=== PATIENT | female | born 1950 | race Caucasian/White ===

== ENCOUNTER → 2018-08-21 | Outpatient (CLI) | payer OTHER ==
[~2018-08-21] MED LIST: ASPI325 PO; ASPI81EC PO; CEPH500 PO; CLOP75 PO; Cinnamon500 MG PO; FISH1000 PO; GLIP5 PO; Ginkgo Biloba40 M1 PO; Hair, Skin & N1 EACH; KETO10 PO; LISI20 PO; LOSA50; METO25ER PO; METO50 PO; METO50ER PO; NEFA50 PO; NITR.4SL SL; NITR.4TPA; NITR.6SL; OXYC5; PRAV20 PO; Percocet 5-3251 EACH PO; Prilosec Otc20 MG PO; UBID100 PO; Zofran Odt8 MG SL
[2018-08-21 17:36] LABS: BASOPHILS ABSOLUTE AUTO 0.03 K/mm3 (0.00-0.23); BASOPHILS PERCENT AUTO 0 % (0-2); EOSINOPHILS ABSOLUTE AUTO 0.06 K/mm3 (0.00-0.68); EOSINOPHILS PERCENT AUTO 1 % (0-6); Hematocrit 42.5 % (33.0-51.0); Hemoglobin 14.5 g/dL (11.5-16.0); IMMATURE GRAN ABSOLUTE AUTO 0.02 K/mm3 (0.00-0.10); IMMATURE GRAN PERCENT AUTO 0 % (0-1); LYMPHOCYTES PERCENT AUTO 33 % (21-46); MONOCYTES ABSOLUTE AUTO 0.37 K/mm3 (0.16-1.47); MONOCYTES PERCENT AUTO 5 % (4-13); Mean Corpuscular HGB 32.1 pg (26.0-34.0); Mean Corpuscular HGB Conc 34.1 g/dL (31.5-36.5); Mean Corpuscular Volume 94 fL (80-100); Mean Platelet Volume 11.6 fL (9.1-12.4); NEUTROPHILS ABSOLUTE AUTO 4.38 K/mm3 (1.96-9.15); NEUTROPHILS PERCENT AUTO 60 % (41-73); Platelet Count 177 K/mm3 (150-400); RDW Coefficient Variation 12.1 % (11.7-14.2); RDW Standard Deviation 42.1 fL (35.1-46.3); Red Blood Cell Count 4.52 M/mm3 (3.80-5.20); White Blood Cell Count 7.26 K/mm3 (4.00-11.30)
[2018-08-21 18:12] LABS: Anion Gap 9 mmol/L (6-16); Blood Urea Nitrogen 14 mg/dL (8-24); Bun/Creatinine Ratio 19.5 (12.0-20.0); CO2, Blood 24 mmol/L (21-32); Calcium, Blood 9.5 mg/dL (8.5-10.1); Chloride, Blood 105 mmol/L (98-108); Creatinine, Blood 0.72 mg/dL (0.40-1.00); Glomerular Filtration Rate >60 (60-); Glucose, Blood 144 mg/dL (70-99); Potassium, Blood 3.6 mmol/L (3.5-5.5); Sodium, Blood 138 mmol/L (136-145)
== END | disposition home or self-care (01) ==
LOC: LAB 17:11 → LAB SHORT 17:11
PROVIDERS: Physician Assistant
DX: N39.0 Urinary tract infection, site not specified (principal); M54.9 Dorsalgia, unspecified
CPT/HCPCS: 80048; 85025; 87086

== ENCOUNTER → 2018-09-18 | Outpatient (CLI) | payer OTHER ==
[~2018-09-18] MED LIST changes: +ALPRAZOLAM0.5 MG PO; +Co Q-10300 MG PO; +Isosorbide Mono30 MG PO; +LIDO700A20 TOP; +LOSA50 PO; +Roxicodone5 MG PO
== END | disposition home or self-care (01) ==
LOC: LAB 17:54 → LAB SHORT 17:54
DX: R10.9 Unspecified abdominal pain (principal)
CPT/HCPCS: 87086

== ENCOUNTER 2018-11-05 16:07 | Emergency (ER) | payer OTHER ==
[~2018-11-05] VITALS: Ht 167.6 cm; Wt 59.9 kg
[~2018-11-05 16:07] MED LIST changes: -ALPRAZOLAM0.5 MG PO; -Co Q-10300 MG PO; -Isosorbide Mono30 MG PO; -LIDO700A20 TOP; -LOSA50 PO; -Roxicodone5 MG PO
[2018-11-05] MEDS ORDERED: LIDO700A20 TOP (17:55)
[2018-11-05] MEDS ORDERED: Roxicodone5 MG PO (17:55)
[2018-11-10] MEDS ORDERED: LOSA50 PO (13:50)
[2018-11-10] MEDS ORDERED: ALPRAZOLAM0.5 MG PO (13:51)
[2018-11-10] MEDS ORDERED: Isosorbide Mono30 MG PO (13:54)
== END 2018-11-05 18:11 | disposition home or self-care (01) ==
LOC: ER 16:07
DX: S20.211A Contusion of right front wall of thorax, initial encounter (principal); W19.XXXA Unspecified fall, initial encounter; Z88.0 Allergy status to penicillin; Z88.2 Allergy status to sulfonamides; Z88.5 Allergy status to narcotic agent; Z79.899 Other long term (current) drug therapy; Z79.82 Long term (current) use of aspirin; F17.210 Nicotine dependence, cigarettes, uncomplicated
CPT/HCPCS: 71100; 99284-25

== ENCOUNTER 2018-11-13 08:43 | Day surgery (SDC) | payer OTHER ==
[~2018-11-13] VITALS: Ht 154.9 cm; Wt 59.0 kg
[~2018-11-13 08:43] MED LIST changes: +ALPRAZOLAM0.5 MG PO; +Isosorbide Mono30 MG PO; +LIDO700A20 TOP; +LOSA50 PO; +Roxicodone5 MG PO
[2018-11-13] MEDS ORDERED: Prilosec Otc20 MG PO (09:23)
[2018-11-13] MEDS ORDERED: Co Q-10300 MG PO (09:24)
--- NOTE | 2018-11-13 11:40 | NUR ---
PT TO RECOVERY POST PROCEDURE. PT ALERT AND ORIENTED, ANSWERING QUESTIONS. PT DENIES CHEST PAIN, SOB OR NAUSEA. MONITOR SB 50'S, B/P 171/79, AFEBRILE, SPO2 98% RA. L GROIN SITE NO SWELLING/HEMATOMA, ALYSSA AND TEGADERM DRSG IN PLACE C,D,I; BLE PULSES UNCHANGED FROM PRE-PROCEDURE. PT'S SPOUSE AT BEDSIDE.
--- NOTE | 2018-11-13 15:24 | NUR ---
PT AMB AROUND UNIT WITHOUT PROBELM, NO CHEST PAIN; L GROIN SITE UNCHANGED AFTER ACTIVITY. PT'S B/P 197/93 AFTER ACTIVITY; DR GUERRERO NOTIFIED OF ELEVATED B/P; ORDERS RECEIVED FOR HYDRALAZINE 10MG IV.
--- NOTE | 2018-11-13 15:41 | NUR ---
PT'S B/P 151/70 AFTER IV HYDRALAZINE; L GROIN SITE REMAINS UNCHANGED. PT RECEIVED DISCHARGE INSTRUCTIONS, MEDICATION LIST AND SUPPLEMENTAL HANDOUTS FOR GROIN SITE CARE; PT AND SPOUSE VERBALIZE GOOD UNDERSTANDING. IV REMOVED, CANNULA INTACT. PT LEFT FACILITY VIA W/C WITH ; CONDITION STABLE.
== END 2018-11-13 15:30 | disposition home or self-care (01) ==
LOC: MHTC 08:43
DX: I25.10 Atherosclerotic heart disease of native coronary artery without angina pectoris (principal); I10 Essential (primary) hypertension; E11.9 Type 2 diabetes mellitus without complications; F32.9 Major depressive disorder, single episode, unspecified; E78.5 Hyperlipidemia, unspecified; F17.210 Nicotine dependence, cigarettes, uncomplicated; Z88.2 Allergy status to sulfonamides; Z88.5 Allergy status to narcotic agent; Z88.0 Allergy status to penicillin; Z79.899 Other long term (current) drug therapy; Z79.82 Long term (current) use of aspirin; Z79.02 Long term (current) use of antithrombotics/antiplatelets; Z79.84 Long term (current) use of oral hypoglycemic drugs; Z95.1 Presence of aortocoronary bypass graft
CPT/HCPCS: 82947; 93459; 99152; 99153; C1769; J0360; J1644; J2250; J3010; J7030; Q9967

== ENCOUNTER 2019-03-05 18:42 | Emergency (ER) | payer OTHER ==
[~2019-03-05] VITALS: Ht 154.9 cm; Wt 56.7 kg
[~2019-03-05 18:42] MED LIST changes: +Co Q-10300 MG PO; -Hair, Skin & N1 EACH; +Hair, Skin & N1 EACH PO
[2019-03-05 19:17] LABS: BASOPHILS ABSOLUTE AUTO 0.01 K/mm3 (0.00-0.23); BASOPHILS PERCENT AUTO 0 % (0-2); EOSINOPHILS PERCENT AUTO 0 % (0-6); Hematocrit 46.6 % (33.0-51.0); Hemoglobin 15.8 g/dL (11.5-16.0); IMMATURE GRAN ABSOLUTE AUTO 0.04 K/mm3 (0.00-0.10); IMMATURE GRAN PERCENT AUTO 1 % (0-1); LYMPHOCYTES ABSOLUTE AUTO 0.55 K/mm3 (0.84-5.20); LYMPHOCYTES PERCENT AUTO 7 % (21-46); MONOCYTES ABSOLUTE AUTO 0.04 K/mm3 (0.16-1.47); MONOCYTES PERCENT AUTO 1 % (4-13); Mean Corpuscular HGB 31.4 pg (26.0-34.0); Mean Corpuscular HGB Conc 33.9 g/dL (31.5-36.5); Mean Corpuscular Volume 93 fL (80-100); Mean Platelet Volume 11.1 fL (9.1-12.4); NEUTROPHILS PERCENT AUTO 92 % (41-73); Platelet Count 169 K/mm3 (150-400); RDW Coefficient Variation 12.4 % (11.7-14.2); RDW Standard Deviation 42.4 fL (35.1-46.3); Red Blood Cell Count 5.03 M/mm3 (3.80-5.20); White Blood Cell Count 8.44 K/mm3 (4.00-11.30)
[2019-03-05 19:38] LABS: Alanine Aminotransfer (ALT/SGP 23 U/L (12-78); Albumin, Blood 4.3 g/dL (3.4-5.0); Albumin/Globulin Ratio 1.2 (0.8-1.8); Alk Phos 94 U/L (50-136); Anion Gap 10 mmol/L (6-16); Aspartate Aminotrans (AST/SGOT 16 U/L (12-37); Bilirubin, Total 0.6 mg/dL (0.1-1.0); Blood Urea Nitrogen 12 mg/dL (8-24); Bun/Creatinine Ratio 16.5 (12.0-20.0); CO2, Blood 24 mmol/L (21-32); Calcium, Blood 10.3 mg/dL (8.5-10.1); Chloride, Blood 104 mmol/L (98-108); Creatinine, Blood 0.73 mg/dL (0.40-1.00); Globulin, Blood 3.6 g/dL (2.2-4.0); Glomerular Filtration Rate >60 (60-); Glucose, Blood 308 mg/dL (70-99); Potassium, Blood 3.6 mmol/L (3.5-5.5); Sodium, Blood 138 mmol/L (136-145); Total Protein, Blood 7.9 g/dL (6.4-8.2)
[2019-03-05 20:12] LABS: Source, Urine Voided
[2019-03-05 20:27] LABS: Bilirubin, Urine Neg (Neg); Blood, Urine 5+ (Neg); Glucose Qualitative, Urine 4+ (Neg); Ketones, Urine 1+ (Neg); Leukocyte Esterase, Urine 3+ (Neg); Nitrite, Urine Neg (Neg); Protein, Urine 4+ (Neg); Urobilinogen, Urine NORM (Normal)
[2019-03-05 20:28] LABS: Appearance, Urine Bloody (Clear); Color, Urine Red (P-Yellow)
[2019-03-05 20:29] LABS: Bacteria Mod /hpf; Red Blood Cells, Urine TNTC /hpf (0-2); Squamous Epithelial Cells Rare /hpf (Few)
[2019-03-05] MEDS ORDERED: Cipro500 MG PO (20:42)
== END 2019-03-05 20:57 | disposition home or self-care (01) ==
LOC: ER 18:42
PROVIDERS: Emergency Medicine; Physician Assistant
DX: R73.9 Hyperglycemia, unspecified (principal); N39.0 Urinary tract infection, site not specified; Z88.0 Allergy status to penicillin; Z88.2 Allergy status to sulfonamides; Z88.5 Allergy status to narcotic agent; Z79.899 Other long term (current) drug therapy; Z79.82 Long term (current) use of aspirin; G47.30 Sleep apnea, unspecified; F17.200 Nicotine dependence, unspecified, uncomplicated
CPT/HCPCS: 36415; 80053; 81001; 82947; 84484; 85025; 99283; J7030

== ENCOUNTER → 2019-08-01 | Outpatient (CLI) | payer OTHER ==
[~2019-08-01] MED LIST changes: +Cipro500 MG PO
[2019-08-01 20:21] LABS: Anion Gap 5 mmol/L (6-16); Blood Urea Nitrogen 11 mg/dL (8-24); Bun/Creatinine Ratio 16.5 (12.0-20.0); CO2, Blood 27 mmol/L (21-32); Calcium, Blood 9.6 mg/dL (8.5-10.1); Chloride, Blood 106 mmol/L (98-108); Creatinine, Blood 0.67 mg/dL (0.40-1.00); Glomerular Filtration Rate >60 (60-); Glucose, Blood 191 mg/dL (70-99); Potassium, Blood 4.1 mmol/L (3.5-5.5); Sodium, Blood 138 mmol/L (136-145)
== END | disposition home or self-care (01) ==
LOC: LAB SHORT 17:26 → LAB 17:26
PROVIDERS: Hospitalist
DX: R10.32 Left lower quadrant pain (principal)
CPT/HCPCS: 80048

== ENCOUNTER → 2020-04-15 | Outpatient (CLI) | payer OTHER | LOC: PLD 11:24 → LAB SHORT 11:24 | DX: D22.61 Melanocytic nevi of right upper limb, including shoulder (principal) | CPT/HCPCS: 88305 ==

== ENCOUNTER → 2020-04-28 | Outpatient (CLI) | payer OTHER | END | disposition home or self-care (01) | LOC: LAB 11:13 → LAB SHORT 11:13 | DX: D03.61 Melanoma in situ of right upper limb, including shoulder (principal) | CPT/HCPCS: 88305 ==

== ENCOUNTER → 2020-06-14 | Outpatient (CLI) | payer OTHER | END | disposition home or self-care (01) | LOC: LAB SHORT 14:30 → PLD 14:30 | DX: N30.00 Acute cystitis without hematuria (principal) | CPT/HCPCS: 87077; 87086; 87186 ==

== ENCOUNTER → 2020-08-19 | Outpatient (CLI) | payer OTHER | END | disposition home or self-care (01) | LOC: LAB SHORT 15:57 → LAB 15:57 | DX: D22.5 Melanocytic nevi of trunk (principal) | CPT/HCPCS: 88305 ==

== ENCOUNTER → 2020-11-17 | Outpatient (CLI) | payer OTHER | END | disposition home or self-care (01) | LOC: LAB 10:57 → LAB SHORT 10:57 | DX: D48.5 Neoplasm of uncertain behavior of skin (principal) | CPT/HCPCS: 88305 ==

== ENCOUNTER → 2020-12-12 | Outpatient (CLI) | payer OTHER | END | disposition home or self-care (01) | LOC: LAB 12:30 → LAB SHORT 12:30 | DX: N30.01 Acute cystitis with hematuria (principal); R30.0 Dysuria | CPT/HCPCS: 87077; 87086; 87186 ==

== ENCOUNTER → 2021-02-26 | Outpatient (CLI) | payer OTHER | END | disposition home or self-care (01) | LOC: LAB SHORT 14:30 | DX: R30.0 Dysuria (principal) | CPT/HCPCS: 87086 ==

== ENCOUNTER → 2021-09-14 | Outpatient (CLI) | payer OTHER ==
[2021-09-14 19:32] LABS: Albumin, Blood 3.8 g/dL (3.4-5.0); Albumin/Globulin Ratio 1.4 (0.8-1.8); Alk Phos 104 U/L (50-136); Anion Gap 7 mmol/L (6-16); Aspartate Aminotrans (AST/SGOT 18 U/L (12-37); Bilirubin, Total 0.9 mg/dL (0.1-1.0); Blood Urea Nitrogen 15 mg/dL (8-24); CHOL/HDL RATIO 2.1; CO2, Blood 25 mmol/L (21-32); Calcium, Blood 9.8 mg/dL (8.5-10.1); Chloride, Blood 107 mmol/L (98-108); Cholesterol 161 mg/dL (50-200); Globulin, Blood 2.8 g/dL (2.2-4.0); Glucose, Blood 187 mg/dL (70-99); HDL Cholesterol 75 mg/dL (>39); LDL/HDL RATIO 0.9; Low Density Lipoprotein Chol 67 mg/dL (0-110); Potassium, Blood 4.1 mmol/L (3.5-5.5); Sodium, Blood 139 mmol/L (136-145); Total Protein, Blood 6.6 g/dL (6.4-8.2); Triglycerides 97 mg/dL (30-160); Very Low Density Lipoprot Chol 19 mg/dL (6-32)
[2021-09-14 19:33] LABS: Alanine Aminotransfer (ALT/SGP 22 U/L (12-78); Creatinine, Blood 0.71 mg/dL (0.40-1.00); Glomerular Filtration Rate 92 (60-)
== END | disposition home or self-care (01) ==
LOC: LAB SHORT 17:31 → LAB 17:31
PROVIDERS: Hospitalist
DX: E11.42 Type 2 diabetes mellitus with diabetic polyneuropathy (principal); I10 Essential (primary) hypertension; E78.5 Hyperlipidemia, unspecified
CPT/HCPCS: 80053; 80061; 82043; 83036

== ENCOUNTER → 2022-06-08 | Outpatient (CLI) | payer OTHER | LOC: LAB 16:45 → LAB SHORT 16:45 | DX: R07.9 Chest pain, unspecified (principal) | CPT/HCPCS: 84484 ==

== ENCOUNTER → 2022-12-07 | Outpatient (CLI) | payer OTHER | END | disposition home or self-care (01) | LOC: LAB 10:45 → LAB SHORT 10:45 | DX: R30.0 Dysuria (principal) | CPT/HCPCS: 87086 ==

== ENCOUNTER → 2023-10-11 | Outpatient (CLI) | payer OTHER ==
[2023-10-11 21:18] LABS: Microalb/Creat Ratio UR, Rand 10.389 mg/g (0.000-30.000); Microalbumin, Random Urine 37.4 mg/L (0.000-20.000)
== END | disposition home or self-care (01) ==
LOC: LAB 18:16 → LAB SHORT 18:16
PROVIDERS: Hospitalist
DX: E11.69 Type 2 diabetes mellitus with other specified complication (principal)
CPT/HCPCS: 82043; 82570

== ENCOUNTER 2024-11-27 07:01 | Day surgery (SDC) | payer OTHER ==
[~2024-11-27] VITALS: Ht 154.9 cm; Wt 66.8 kg
[~2024-11-27 07:01] MED LIST changes: +AMLO5 PO; +Balanced Salt Epinephrine Irrigation Solution 500 mL IR SCH; +EZET10 PO; +FISH OIL 1,0001 EA10 PO; +GINKGOLD MAX120 MG PO; +INSULANPEN SC; +Moxifloxacin HCL 0.5 MG/0.1 ML 0.4MLSYR RIGHTEYE SCH; +Ondansetron 4 MG SoluTab MM PRN; +PHENYLEPHRINE\\TROPICAMIDE\\TETRACAINE OPHTHALMIC DILATING SOLN RIGHTEYE PRN; +Povidone-Iodine 450 DROP/30 ML Solution ONE; +Povidone-Iodine 450 DROP/30 ML Solution RIGHTEYE SCH; +Tetracaine HCl/Pf 0.5% Opth Soln 4 ml ONE
--- NOTE | 2024-11-27 08:25 | NUR ---
11/27/24 0825 Trisha Carrasco VITALS AT 0825 BP:173/70 P: 55 O2: 98% WITH 8 LITERS OF BLOW BY OXYGEN
[2024-11-27 09:08] VITALS: BP 152/75
== END 2024-11-27 08:58 | disposition home or self-care (01) ==
LOC: ORSCSDS 07:01
PROVIDERS: Student in an Organized Health Care Education/Training Program
PROC: 08RJ3JZ Replacement of Right Lens with Synthetic Substitute, Percutaneous Approach (ICD-10-PCS; principal; 2024-11-27 08:30)
DX: E11.36 Type 2 diabetes mellitus with diabetic cataract (principal); H25.813 Combined forms of age-related cataract, bilateral; I25.2 Old myocardial infarction; F17.210 Nicotine dependence, cigarettes, uncomplicated; Z79.899 Other long term (current) drug therapy
CPT/HCPCS: A9270; J2003; V2632

== ENCOUNTER 2024-12-05 09:18 | Day surgery (SDC) | payer OTHER ==
[~2024-12-05] VITALS: Ht 154.9 cm; Wt 67.4 kg
[~2024-12-05 09:18] MED LIST changes: -Balanced Salt Epinephrine Irrigation Solution 500 mL IR SCH; -Moxifloxacin HCL 0.5 MG/0.1 ML 0.4MLSYR RIGHTEYE SCH; -PHENYLEPHRINE\\TROPICAMIDE\\TETRACAINE OPHTHALMIC DILATING SOLN RIGHTEYE PRN; -Povidone-Iodine 450 DROP/30 ML Solution RIGHTEYE SCH
--- NOTE | 2024-12-05 10:18 | NUR ---
12/05/24 Mena8 Raysa Guerrero 1005: VT REPORTS TO THIS RN THAT SHE ONLY HAD 5 MG PO VALIUM LAST WEEK AND WOULD LIKE TO ONLY HAVE 5 MG PO VALIUM THIS TIME WELL. 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 1017: PER DR PRICE OK TO PROCEED WITH 5 MG PO VALIUM.
--- NOTE | 2024-12-05 10:49 | NUR ---
12/05/24 Singh9 Kelly Elliott 1045 BP:162/86 HR:56 O2:98% RESP:16
[2024-12-05 12:12] VITALS: BP 172/77
--- NOTE | 2024-12-05 12:12 | NUR ---
12/05/24 1212 Crispin Conway PT INSTRUCTED TO MONITOR B/P AT HOME AND FOLLOW UP WITH PCP IF NEEDED.
[2024-12-06] MEDS ORDERED: Balanced Salt Epinephrine Irrigation Solution 500 mL IR SCH (06:00)
[2024-12-06] MEDS ORDERED: Povidone-Iodine 450 DROP/30 ML Solution LEFTEYE SCH (06:00)
[2024-12-06] MEDS ORDERED: Moxifloxacin HCL 0.5 MG/0.1 ML 0.4MLSYR LEFTEYE SCH (06:00)
[2024-12-06] MEDS ORDERED: PHENYLEPHRINE\\TROPICAMIDE\\TETRACAINE OPHTHALMIC DILATING SOLN LEFTEYE PRN (06:00)
== END 2024-12-05 11:16 | disposition home or self-care (01) ==
LOC: ORSCSDS 09:18
PROVIDERS: Student in an Organized Health Care Education/Training Program
PROC: 08RK3JZ Replacement of Left Lens with Synthetic Substitute, Percutaneous Approach (ICD-10-PCS; principal; 2024-12-05 11:00)
DX: E11.36 Type 2 diabetes mellitus with diabetic cataract (principal); H25.812 Combined forms of age-related cataract, left eye; I25.2 Old myocardial infarction; Z79.82 Long term (current) use of aspirin; Z79.02 Long term (current) use of antithrombotics/antiplatelets; Z79.84 Long term (current) use of oral hypoglycemic drugs; Z79.4 Long term (current) use of insulin; Z79.899 Other long term (current) drug therapy; F17.210 Nicotine dependence, cigarettes, uncomplicated
CPT/HCPCS: A9270; J2003; V2632